=== PATIENT | female | born 1980 | race Caucasian/White ===

== ENCOUNTER 2020-09-23 13:15 | Emergency (ER) | payer OTHER, SELFPAY ==
--- NOTE | 2020-09-23 13:52 | ED.PSYCH ---
HPI - Psych General Chief Complaint: Psychiatric Symptoms Stated Complaint: crisis Time Seen by Provider: 09/23/20 13:45 Source: patient Mode of arrival: ambulatory Limitations: no limitations History of Present Illness HPI Narrative: This is a 40-year-old female with past medical history significant for hepatitis C from IV drug use status post treatment in 2017 at [facility], hepatitis liver cirrhosis, history of IVDA use has been sober for several years now on methadone, anxiety, depression who presents ambulatory via triage with complaint of feeling increasingly depressed and anxious over the past several days and now having thoughts of SI with plan to drown herself in the tub. She does tell me that she was seeing mental health services at [facility] in [place] and was maintained on some antidepressants which she does not know the names of however she has some miss appointments and was discharged from services and trying to get back in and has not had the opportunity to for the past 6 months or so does she has been out of her antidepressants. Today she denies use of any alcohol or illicit drugs or any misuse of any medications to harm herself. She offers no medical complaints today. MD complaint: suicidal ideation and feels depressed Onset (ago): day(s) Duration: constant History of same: Yes Relieving factors: medication and therapy Exacerbating factors: none Context: not taking psychiatric medications Associated psychiatric symptoms: depression and suicidal ideation Associated symptoms: denies other symptoms Treatments prior to arrival: none If self harm: admits thoughts of self harm and has plan (States she has thoughts that come and go of drowning herself in bathtub. ) Related Data Allergies Allergy/AdvReac Type Severity Reaction Status Date / Time No Known Allergies Allergy Verified 09/23/20 14:10 [No Known Allergies*] Review of Systems Review of Systems: Constitutional: No Weight loss, No Fever, No Chills, No Night Sweats, No Fatigue, No Malaise ENT/Mouth: No Hearing loss, No Ear Pain, No Nasal Congestion, No Sinus Pain, No Hoarseness, No sore throat, No Rhinorrhea, No Swallowing Difficulty Eyes: No Eye Pain, No Swelling, No Redness, No Foreign Body, No Discharge, No Vision Changes Cardiovascular: No Chest Pain, No SOB, No Dyspnea on Exertion, No Orthopnea, No Edema, No Palpitations Respiratory: No Cough, No Sputum, No Wheezing, No Dyspnea Gastrointestinal: No Nausea, No Vomiting, No Diarrhea, No Constipation, No abdominal Pain, No Hematochezia, No Melena Genitourinary: no irregular bleeding, No Dysuria, No Urinary Frequency, No Hematuria, No Urinary Incontinence, No Urgency, No Flank Pain, No Urinary Flow Changes, No Hesitancy Musculoskeletal: No joint pain, No Myalgias, No Joint Swelling Skin: No Skin Lesions, No rash Neuro: No Weakness, No Numbness, No Paresthesias, No Loss of Consciousness, No Dizziness, No Headache Psych: As noted per HPI Heme/Lymph: No Bruising, No Bleeding,No Lymphadenopathy Endocrine: No Polyuria, No Polydipsia, No Temperature Intolerance Yes all other systems are reviewed and are negative [facility] Past Medical History Medical History (Updated 09/23/20 @ 20:15 by Beba Beard NP) Anxiety disorder Depression Hepatitis C Liver cirrhosis Methadone dependence Substance abuse Social History Social History Advance Directives: No Advance Directives Information Provided: No Physical Exam Vital Signs: Vital Signs: Last Vital Signs Temp 97.3 F 09/23/20 19:54 Pulse 92 09/23/20 19:54 Resp 16 09/23/20 19:54 BP 135/70 09/23/20 19:54 Pulse Ox 97 09/23/20 19:54 Body Mass Index 39.4 Reviewed Const: General: cooperative, healthy appearing and anxious (Tearful, labile mood); No intoxicated appearing Nutritional Appearance: average body habitus Orientation/consciousness: patient oriented x3 HENMT: Head: Yes normal to inspection Ears: hearing grossly normal bilaterally Eyes: General: appearance normal, both eyes and all related structures Visual Pryor: normal visual pryor by confrontation Alignment and Position: alignment normal Neck: Neck: Yes normal visual inspection, No positive Brudzinski's sign, No positive Kernig's sign and No tender Thyroid: Thyroid normal Chest: Chest palpation & inspection: normal inspection of the chest Resp: Effort & Inspection: normal respiratory effort Auscultation: clear to auscultation bilaterally Cardio: Jugular venous distension: no JVD Rhythm: regular rhythm Heart sounds: S1 normal heart sound present and S2 normal heart sound present GI: Inspection: Yes normal to inspection Palpation (GI): Soft to palpation Percussion: Yes normal to percussion Auscultation: normal bowel sounds : General: Yes no CVA tenderness Back/Spine/Pelvis: Back: no CVA tenderness Skin: General skin exam: no rashes or lesions noted Neuro: General: patient oriented x3 Extrem: General: Yes normal to inspection Course Course Course Narrative: 40-year-old female with above history including history of anxiety and depression and prior substance abuse presenting with above complaint of feeling anxious and depressed with suicidal ideation had medical workup that was unremarkable subsequently cleared for psychiatric evaluation she was seen by the crisis team who is familiar with her and set up with respite program. Patient has been cleared by the crisis team for discharge patient contracts for safety and is future oriented and will go to respite tomorrow morning. Reevaluation(s) Reevaluation #1: 1400 Offers no medical complaints will check basic labs for medical screening, safety watch per protocol and referred to crisis once medically clear. Reevaluation #2: She has been calm cooperative here medically clear for psychiatric evaluation. Consultations Consultation #1: Patient evaluated by crisis team well known to her head an acute episode that prompted her to come here today trigger by her underlying anxiety and other social issues. They have set of with partial program for tomorrow patient contracts for safety no SI or HI and will gather stuffing go to respite program tomorrow from home. MDM - Psych Lab Data Result diagrams: 09/23/20 15:28 09/23/20 15:28 Labs: Lab Results 09/23/20 09/23/20 09/23/20 Range/Units 15:07 15:07 15:07 WBC (4.8-10.8) X10*3/uL RBC (4.20-5.50) X10*6/uL Hgb (12.0-16.0) g/dl Hct (37-47) % MCV (80-98) fL MCH (27.0-33.0) pg MCHC (31.0-35.0) g/dl RDW (11.0-16.0) % Plt Count (160-400) X10*3/uL MPV (9.4-12.3) fL Immature Gran % (Auto) (0.0-0.4) % Neut % (Auto) (45-73) % Lymph % (Auto) (20-40) % [place] % (Auto) (2-11) % Eos % (Auto) (0-4) % Baso % (Auto) (0-2) % Lymph # (Auto) (1.2-4.9) X10*3/uL [place] # (Auto) (0.1-1.2) X10*3/uL Eos # (Auto) (0.0-0.4) X10*3/uL Baso # (Auto) (0.0-0.2) X10*3/uL Abs Immat Gran (auto) (0.00-0.03) X10*3/uL Absolute Neuts (auto) (2.0-8.3) X10*3/uL Absolute Nucleated RBC (0.0-0.012) X10*3/uL Nucleated RBC % (auto) (0.0-0.2) /100WBC Sodium (135-145) mmol/L Potassium (3.3-5.1) mmol/L Chloride (96-108) mmol/L Carbon Dioxide (22-29) mmol/L Anion Gap (12-20) BUN (9-16) mg/dL Creatinine (0.5-1.4) mg/dL Estim Creat Clear Calc Estimated GFR Random Glucose (60-115) mg/dL Calcium (8.4-10.2) mg/dL Total Bilirubin (0.0-1.0) mg/dL AST (5-31) U/L ALT (0-31) U/L Alkaline Phosphatase (39-117) U/L Total Protein (6.5-8.0) g/dL Albumin (3.5-5.0) g/dL Urine Color DARK YELLOW Urine Appearance CLEAR Urine pH 6.5 (5.0-8.0) Ur Specific [place] 1.020 (1.005-1.025) Urine Protein TRACE (NEG-TRACE) MG/DL Urine Glucose (UA) 100 H (NEG) MG/DL Urine Ketones NEG (NEG) MG/DL Urine Blood NEG (NEG) Urine Nitrite NEG (NEG) Ur Leukocyte Esterase NEG (NEG) Urine RBC 0 (0) /HPF Urine WBC 0 (0-4) /HPF Ur Squamous Epith Cells 2+ /LPF Urine Bacteria TRACE /LPF Urine Test NEGATIVE (NEGATIVE) Urine Opiates Screen Not Detected (Not Detect) Ur Barbiturates Screen Not Detected (Not Detect) Ur Phencyclidine Scrn Not Detected (Not Detect) Ur Amphetamines Screen Not Detected (Not Detect) U Benzodiazepines Scrn Not Detected (Not Detect) Urine Cocaine Screen Not Detected (Not Detect) U Marijuana (THC) Screen POSITIVE H (Not Detect) Ethyl Alcohol mg/dL COVID-19 (SADAF) (Negative) COVID-19 Clin Com 09/23/20 09/23/20 09/23/20 Range/Units 15:28 15:28 15:28 WBC 7.6 (4.8-10.8) X10*3/uL RBC 4.40 (4.20-5.50) X10*6/uL Hgb 14.1 (12.0-16.0) g/dl Hct 40.3 (37-47) % MCV 91.6 (80-98) fL MCH 32.0 (27.0-33.0) pg MCHC 35.0 (31.0-35.0) g/dl RDW 12.8 (11.0-16.0) % Plt Count 111 L (160-400) X10*3/uL MPV 11.8 (9.4-12.3) fL Immature Gran % (Auto) 0.3 (0.0-0.4) % Neut % (Auto) 70.0 (45-73) % Lymph % (Auto) 23.5 (20-40) % [place] % (Auto) 5.1 (2-11) % Eos % (Auto) 0.8 (0-4) % Baso % (Auto) 0.3 (0-2) % Lymph # (Auto) 1.8 (1.2-4.9) X10*3/uL [place] # (Auto) 0.4 (0.1-1.2) X10*3/uL Eos # (Auto) 0.1 (0.0-0.4) X10*3/uL Baso # (Auto) 0.0 (0.0-0.2) X10*3/uL Abs Immat Gran (auto) 0.02 (0.00-0.03) X10*3/uL Absolute Neuts (auto) 5.3 (2.0-8.3) X10*3/uL Absolute Nucleated RBC 0.000 (0.0-0.012) X10*3/uL Nucleated RBC % (auto) 0.0 (0.0-0.2) /100WBC Sodium 139 (135-145) mmol/L Potassium 3.5 (3.3-5.1) mmol/L Chloride 106 (96-108) mmol/L Carbon Dioxide 26 (22-29) mmol/L Anion Gap 11 L (12-20) BUN 8 L (9-16) mg/dL Creatinine 0.78 (0.5-1.4) mg/dL Estim Creat Clear Calc 111.7 Estimated GFR > 60 Random Glucose 130 H (60-115) mg/dL Calcium 8.7 (8.4-10.2) mg/dL Total Bilirubin 1.1 H (0.0-1.0) mg/dL AST 24 (5-31) U/L ALT 18 (0-31) U/L Alkaline Phosphatase 75 (39-117) U/L Total Protein 7.8 (6.5-8.0) g/dL Albumin 4.0 (3.5-5.0) g/dL Urine Color Urine Appearance Urine pH (5.0-8.0) Ur Specific [place] (1.005-1.025) Urine Protein (NEG-TRACE) MG/DL Urine Glucose (UA) (NEG) MG/DL Urine Ketones (NEG) MG/DL Urine Blood (NEG) Urine Nitrite (NEG) Ur Leukocyte Esterase (NEG) Urine RBC (0) /HPF Urine WBC (0-4) /HPF Ur Squamous Epith Cells /LPF Urine Bacteria /LPF Urine Test (NEGATIVE) Urine Opiates Screen (Not Detect) Ur Barbiturates Screen (Not Detect) Ur Phencyclidine Scrn (Not Detect) Ur Amphetamines Screen (Not Detect) U Benzodiazepines Scrn (Not Detect) Urine Cocaine Screen (Not Detect) U Marijuana (THC) Screen (Not Detect) Ethyl Alcohol < 10 mg/dL COVID-19 (SADAF) (Negative) COVID-19 Clin Com 09/23/20 Range/Units 19:08 WBC (4.8-10.8) X10*3/uL RBC (4.20-5.50) X10*6/uL Hgb (12.0-16.0) g/dl Hct (37-47) % MCV (80-98) fL MCH (27.0-33.0) pg MCHC (31.0-35.0) g/dl RDW (11.0-16.0) % Plt Count (160-400) X10*3/uL MPV (9.4-12.3) fL Immature Gran % (Auto) (0.0-0.4) % Neut % (Auto) (45-73) % Lymph % (Auto) (20-40) % [place] % (Auto) (2-11) % Eos % (Auto) (0-4) % Baso % (Auto) (0-2) % Lymph # (Auto) (1.2-4.9) X10*3/uL [place] # (Auto) (0.1-1.2) X10*3/uL Eos # (Auto) (0.0-0.4) X10*3/uL Baso # (Auto) (0.0-0.2) X10*3/uL Abs Immat Gran (auto) (0.00-0.03) X10*3/uL Absolute Neuts (auto) (2.0-8.3) X10*3/uL Absolute Nucleated RBC (0.0-0.012) X10*3/uL Nucleated RBC % (auto) (0.0-0.2) /100WBC Sodium (135-145) mmol/L Potassium (3.3-5.1) mmol/L Chloride (96-108) mmol/L Carbon Dioxide (22-29) mmol/L Anion Gap (12-20) BUN (9-16) mg/dL Creatinine (0.5-1.4) mg/dL Estim Creat Clear Calc Estimated GFR Random Glucose (60-115) mg/dL Calcium (8.4-10.2) mg/dL Total Bilirubin (0.0-1.0) mg/dL AST (5-31) U/L ALT (0-31) U/L Alkaline Phosphatase (39-117) U/L Total Protein (6.5-8.0) g/dL Albumin (3.5-5.0) g/dL Urine Color Urine Appearance Urine pH (5.0-8.0) Ur Specific [place] (1.005-1.025) Urine Protein (NEG-TRACE) MG/DL Urine Glucose (UA) (NEG) MG/DL Urine Ketones (NEG) MG/DL Urine Blood (NEG) Urine Nitrite (NEG) Ur Leukocyte Esterase (NEG) Urine RBC (0) /HPF Urine WBC (0-4) /HPF Ur Squamous Epith Cells /LPF Urine Bacteria /LPF Urine Test (NEGATIVE) Urine Opiates Screen (Not Detect) Ur Barbiturates Screen (Not Detect) Ur Phencyclidine Scrn (Not Detect) Ur Amphetamines Screen (Not Detect) U Benzodiazepines Scrn (Not Detect) Urine Cocaine Screen (Not Detect) U Marijuana (THC) Screen (Not Detect) Ethyl Alcohol mg/dL COVID-19 (SADAF) Negative (Negative) COVID-19 Clin Com See Note Discharge Plan Discharge Clinical Impression: Methadone dependence Depression Qualifiers: Depression Type: major depressive disorder Major depression recurrence: recurrent Active/Remission status: currently active Major depression episode severity: moderate Qualified Code(s): F33.1 - Major depressive disorder, recurrent, moderate Patient Disposition: Home, Self-Care Instructions: Depression (ED) Additional Instructions: Please follow-up with outpatient treatments as scheduled and respite as discussed by YOG[facility]. Thank you for choosing this emergency department for evaluation. Please follow-up with primary care physician as needed. Return to the emergency department for any new, concerning, or worsening symptoms. Interventions: ED Discharge Assessment Last Done: 09/23/20 20:24 Discharge Date/Time: 09/23/20 20:25
[2020-09-23 14:08] VITALS: BP 139/71; PULSE 93; RESP 16; TEMP 37.5; O2SAT 97; BMI 39.4
--- NOTE | 2020-09-23 14:48 | PC.NURSE ---
SUMMARY SENT TO [facility] AND RECEIPT CONFIRMED WITH A PHONE CALL.
[2020-09-23 15:20] LABS: Glucose Urine UA 100 MG/DL (NEG); Leukocyte Esterase Urine NEG (NEG); Nitrite Urine NEG (NEG); PH 6.5 (5.0-8.0); Urine Blood NEG (NEG); Urine Ketones NEG (NEG); Urine Protein TRACE MG/DL (NEG-TRACE)
[2020-09-23 15:21] LABS: Appearance Urine CLEAR; Color Urine DARK YELLOW; UPreg QC Valid YES; Urine Pregnancy NEGATIVE (NEGATIVE)
[2020-09-23 15:44] LABS: MANUAL DIFF FLAG NO
[2020-09-23 15:51] LABS: Basophils Percent Auto 0.3 % (0-2); Eosinophils Absolute Auto 0.1 X10*3/uL (0.0-0.4); Eosinophils Percent Auto 0.8 % (0-4); Hematocrit 40.3 % (37-47); Hemoglobin 14.1 g/dl (12.0-16.0); Imm Gran Abs Auto 0.02 X10*3/uL (0.00-0.03); Imm Gran Pct Auto 0.3 % (0.0-0.4); Lymphocytes Absolute Auto 1.8 X10*3/uL (1.2-4.9); Lymphocytes Percent Auto 23.5 % (20-40); Mean Corpuscular Volume 91.6 fL (80-98); Mean Platelet Volume 11.8 fL (9.4-12.3); Monocytes Absolute Auto 0.4 X10*3/uL (0.1-1.2); Monocytes Percent Auto 5.1 % (2-11); Neutrophils Absolute Auto 5.3 X10*3/uL (2.0-8.3); Platelet Count 111 X10*3/uL (160-400); Red Cell Distribution Width 12.8 % (11.0-16.0); White Blood Count 7.6 X10*3/uL (4.8-10.8)
[2020-09-23] MEDS: LORazepam 1 MG TABLET PO (16:06)
[2020-09-23 16:20] LABS: Ethanol < 10 mg/dL
[2020-09-23 16:21] LABS: Alanine Aminotransferase 18 U/L (0-31); Alkaline Phosphatase 75 U/L (39-117); Anion Gap 11 (12-20); Aspartate Amino Transferase 24 U/L (5-31); Bilirubin Total 1.1 mg/dL (0.0-1.0); Blood Urea Nitrogen 8 mg/dL (9-16); Calcium 8.7 mg/dL (8.4-10.2); Carbon Dioxide 26 mmol/L (22-29); Chloride 106 mmol/L (96-108); Creatinine Clr Calc Pharmacy 111.7; Estimated Glomerular Filt Rate > 60; Glucose Random 130 mg/dL (60-115); Potassium 3.5 mmol/L (3.3-5.1); Sodium 139 mmol/L (135-145); Total Protein 7.8 g/dL (6.5-8.0)
[2020-09-23 18:29] LABS: Bacteria Urine TRACE /LPF; RBC Urine 0 /HPF (0); Squamous Epithelial Cell Urine 2+ /LPF; WBC Urine 0 /HPF (0-4)
--- NOTE | 2020-09-23 18:40 | PC.NURSE ---
[facility] AT BEDSIDE, SHE WAS SEEN YESTERDAY BY THEM & RESPITE SITE WAS FOUND FOR HER BUT THEREWAS APPARENTLY A DELAY D/T ISSUES WITH QUESTION OF PT BEING ABLE TO RECEIVE MTD DOSES WITH THEM. IF PT AGREES TO LEAVE FOR RESPITE, SHE WILL MOSTLY LIKELY LEAVE TODAY THERE IS A BED AVAIALBLE.
[2020-09-23 19:54] VITALS: BP 135/70; PULSE 92; RESP 16; TEMP 36.3; O2SAT 97
--- NOTE | 2020-09-23 19:58 | PC.NURSE ---
TRANSPORTATION HOME ARRANGED BY PAULETTE ([employer] APPRENTICE). PLAN TO DISCHARGE HOME WITH PLAN TO GO TO RESPITE AFTERWARDS, PER CHARAN (CARE TEAM).
--- NOTE | 2020-09-23 19:58 | PC.NURSE ---
URINE DRUG SCREEN ADDED, SPOKE WITH ALANNA IN LAB, PLAN TO ADD-ON LAB TO PREVIOUSLY SENT URINE SPECIMEN.
[2020-09-23 20:23] LABS: COVID-19 Test Negative (Negative); IDNOW Serial# 9DD0AD1C
[2020-09-23 20:28] LABS: Amphetamine Screen Urine Not Detected (Not Detect); Barbiturates, Urine Not Detected (Not Detect); Benzodiazepines Screen Urine Not Detected (Not Detect); Cannabinoid Screen Urine POSITIVE (Not Detect); Cocaine Screen Urine Not Detected (Not Detect); Opiate Screen Urine Not Detected (Not Detect); Phencyclidine Screen Urine Not Detected (Not Detect)
--- NOTE | 2020-09-23 22:29 | MHC.CARE ---
CARE Team speaks with [facility] clinician. Plan is for pt to d/c home and go to respite tomorrow. [facility] requests that UTOX and covid results [facility]. Faxed by CARE Team @2025.
== END 2020-09-23 20:25 | disposition home or self-care (01) ==
PROVIDERS: Nurse Practitioner Primary Care; Emergency Provider Emergency Medicine
DX: F33.1 Major depressive disorder, recurrent, moderate (principal); R45.851 Suicidal ideations; F11.20 Opioid dependence, uncomplicated; Z20.822 Contact with and (suspected) exposure to COVID-19; Z79.899 Other long term (current) drug therapy
CPT/HCPCS: 36415; 80053; 80307; 80320; 81001; 81025; 85025; 87635; 99284

== ENCOUNTER 2022-07-26 01:33 | Emergency (ER) | payer OTHER, SELFPAY ==
--- NOTE | 2022-07-26 | ECG_ITS ---
Test Reason : CHEST PAIN Blood Pressure : / mmHG Vent. Rate : 093 BPM Atrial Rate : 093 BPM P-R Int : 134 ms QRS Dur : 094 ms QT Int : 382 ms P-R-T Axes : 035 016 018 degrees QTc Int : 474 ms Artifact in tracing Normal sinus rhythm Normal ECG When compared with ECG of 12-AUG-2016 22:59, No significant change was found Referred By: Emily Gonzáles Electronically Signed By:SHARON MANZANARES
--- NOTE | ~2022-07-26 | XR_ITS ---
EXAMINATION: XR CHEST CLINICAL INFORMATION: Chest pain COMPARISON: None TECHNIQUE: Frontal view of the chest was obtained. FINDINGS: No significant abnormality is noted involving the heart, lungs, mediastinum, bony thorax or soft tissues. XR/XR chest 1V IMPRESSION: Unremarkable examination.
[2022-07-26 01:37] VITALS: BP 131/67; BP 136/74; PULSE 72; PULSE 95; RESP 14; TEMP 37.2; O2SAT 99
[2022-07-26 01:51] VITALS: BP 131/67; PULSE 100; RESP 16; TEMP 37.1; O2SAT 97
--- NOTE | 2022-07-26 01:59 | ED_ITS ---
HPI - Chest Pain General Chief Complaint: Chest Pain Stated Complaint: chest tightness Time Seen by Provider: 07/26/22 01:50 Source: patient and EMS Mode of arrival: EMS Limitations: no limitations History of Present Illness HPI narrative: Came in for evaluation of chest pain since early this morning. Localized mid chest pain with no radiation, pain feels like tightness in the mid chest, patient also complain of shortness of breath, had similar symptoms in the past due to anxiety, no relieving factor, no aggravating factor pain was described as constant sense at this morning moderate 5/10. Declined recent tr maikol or prolonged immobilization. No lower extremity swelling or tenderness. Patient feels depressed but no SI or HI or hallucination. Related Data Allergies Allergy/AdvReac Type Severity Reaction Status Date / Time No Known Allergies Allergy Verified 07/26/22 01:47 [No Known Allergies*] Review of Systems Review of Systems: All other systems are reviewed and are negative Constitutional: Reports as per HPI and Reports no additional constitutional complaints Eyes: Reports as per HPI and Reports no additional eye complaints Reports system reviewed and no additional complaints, except as documented Cardiovascular: Reports as per HPI and Reports no additional cardiovascular complaints Respiratory: Reports as per HPI and Reports no additional respiratory complaints Gastrointestinal: Reports as per HPI and Reports no additional gastrointestinal complaints Genitourinary: Reports no additional female genitourinary complaints Musculoskeletal: Reports no additional musculoskeletal complaints Skin/Breast: Reports system reviewed and no additional complaints, except as docu Psychiatric: Reports no additional psychiatric complaints Endocrine: Reports no additional endocrine complaints Hematologic/Lymphatic: Reports no additional hematologic/lymphatic complaints Allergic/Immunologic: Reports no additional allergic/immunologic complaints Reports system reviewed and no additional complaints, except as documented and Reports Abnormal speech present [facility] Past Medical History Medical History Anxiety disorder Depression Hepatitis C Liver cirrhosis Methadone dependence Substance abuse Social History Social History Advance Directives: No Advance Directives Information Provided: No Physical Exam Vital Signs: Vital Signs: Last Vital Signs Temp 98.7 F 07/26/22 01:51 Pulse 104 H 07/26/22 03:59 Resp 18 07/26/22 03:59 BP 135/75 07/26/22 03:59 Pulse Ox 100 07/26/22 03:59 O2 Del Method 07/26/22 03:59 BMI result Body Mass Index 30.0 Vital signs have been reviewed as appeared to be correct. Blood pressure normal. Heart rate normal. Respiration rate normal. Temperature normal. Oxygen saturation normal. Appearance: Anxious, Alert. Oriented X3. No acute distress. Head: Normal external exam. Normocephalic. Atraumatic. No Nielson signs noted. No raccoon eyes noted Eyes: PERRLA. EOMI. Conjunctiva and sclera normal. Eyelids normal. ENT: TM's Normal. Pharynx normal. Uvula midline. Moist mucous membranes. No trismus noted. No drooling noted. No muffled voice noted. Neck: Normal inspection. Neck supple. FROM. No adenopathy. Thyroid Normal. No meningeal signs. No neck mass noted. CVS: Normal heart rate and rhythm. Heart sound normal. No murmurs noted. Pulses normal throughout. Respiratory: No respiratory distress. Painless inspiration. Breath sounds normal. No wheezes/rales/rhonchi noted. Chest nontender. No accessory muscle usage noted or decreased air movement noted. Abdomen: Soft and nontender. Bowel sounds normal in all 4 quadrants. No distention noted. No organomegaly noted. No visible injury noted. Back: No CVA tenderness. Full range of motion noted. Skin: Skin warm and dry. Normal skin color. Normal skin turgor. No rashes/lesions/lacerations noted. Extremities: No lower extremity edema. Extremities exhibit normal range of motion. Extremities nontender. Neuro: Oriented X 3. Cranial nerve exam: II-XII are grossly intact No motor deficit. No sensory deficit. Reflexes normal. Course Course Course Narrative: 41-year-old female history of anxiety and depression came in with atypical chest pain, unremarkable cardiac workup, negative D-dimer with low risk for PA, stable vital signs. Hypokalemia will replete potassium. Patient was chronic depression but no SI or HI or hallucination. Reevaluation(s) Reevaluation #1: Unremarkable workup for chest pain patient still feel anxious after given 2 mg of Ativan patient has very poor eye contact feeling depressed with a depressed affect but no SI or HI will start physician observation until care team evaluate the patient. Time: 05:14 Medications Administered Discontinued Medications Generic Name Dose Route Start Last Admin Trade Name Freq PRN Reason Stop Dose Admin Potassium Chloride 10 meq in 100 mls @ 100 mls/hr 07/26/22 03:07 07/26/22 04:09 Potassium Chloride/H20 IV 07/26/22 04:06 Not Given ONCE ONE Lorazepam 2 mg 07/26/22 03:55 07/26/22 04:08 Lorazepam 1 Mg Tablet PO 07/26/22 03:56 2 mg ONCE ONE Administration Medical Decision Making Differential Diagnosis Differential Diagnoses: The differential diagnosis associated with the presentation includes (Anxiety, atypical chest pain, ACS, PE.) Lab Data MDM Lab Attestation statement: I reviewed the patient's lab results. Result Diagrams: 07/26/22 02:01 07/26/22 02:01 Labs: Lab Results 07/26/22 07/26/22 07/26/22 Range/Units 02:01 02:01 02:01 WBC 6.2 (4.8-10.8) X10*3/uL RBC 4.25 (4.20-5.50) X10*6/uL Hgb 13.1 (12.0-16.0) g/dl Hct 37.1 (37.0-47.0) % MCV 87.3 (80.0-98.0) fL MCH 30.8 (27.0-33.0) pg MCHC 35.3 H (31.0-35.0) g/dl RDW 13.1 (11.0-16.0) % Plt Count 86 L (160-400) X10*3/uL MPV 12.0 (9.4-12.3) fL Immature Gran % (Auto) 0.2 (0.0-0.4) % Neut % (Auto) 74.5 H (45-73) % Lymph % (Auto) 17.7 L (20-40) % [place] % (Auto) 6.8 (2-11) % Eos % (Auto) 0.6 (0-4) % Baso % (Auto) 0.2 (0-2) % Lymph # (Auto) 1.1 L (1.2-4.9) X10*3/uL [place] # (Auto) 0.4 (0.1-1.2) X10*3/uL Eos # (Auto) 0.0 (0.0-0.4) X10*3/uL Baso # (Auto) 0.0 (0.0-0.2) X10*3/uL Abs Immat Gran (auto) 0.01 (0.00-0.03) X10*3/uL Absolute Neuts (auto) 4.6 (2.0-8.3) x10*3/uL Absolute Nucleated RBC 0.000 (0.0-0.012) X10*3/uL Nucleated RBC % (auto) 0.0 (0.0-0.2) /100WBC D-Dimer High Sensitivty < 150 NG/ML Sodium 137 (135-145) mmol/L Potassium 3.0 L (3.3-5.1) mmol/L Chloride 105 (96-108) mmol/L Carbon Dioxide 23 (22-29) mmol/L Anion Gap 12 (12-20) BUN 8 L (9-16) mg/dL Creatinine 0.78 (0.5-1.4) mg/dL Estim Creat Clear Calc 95.7 Estimated GFR > 60 Random Glucose 120 H (60-115) mg/dL Calcium 8.8 (8.4-10.2) mg/dL Total Bilirubin 0.6 (0.0-1.0) mg/dL Direct Bilirubin 0.2 (0.0-0.5) mg/dL AST 23 (5-31) U/L ALT 23 (0-31) U/L Alkaline Phosphatase 74 (39-117) U/L Troponin I High Sens (<3.5-17.0) ng/L B-Natriuretic Peptide (<100) pg/mL Total Protein 7.4 (6.5-8.0) g/dL Albumin 4.0 (3.5-5.0) g/dL Lipase 16 (8-78) U/L Influenza Type A (PCR) (Negative) Influenza Type B (PCR) (Negative) RSV RNA Qual (PCR) (Negative) SARS-CoV-2 RNA (RT-PCR) (Negative) 07/26/22 07/26/22 07/26/22 Range/Units 02:01 02:01 02:01 WBC (4.8-10.8) X10*3/uL RBC (4.20-5.50) X10*6/uL Hgb (12.0-16.0) g/dl Hct (37.0-47.0) % MCV (80.0-98.0) fL MCH (27.0-33.0) pg MCHC (31.0-35.0) g/dl RDW (11.0-16.0) % Plt Count (160-400) X10*3/uL MPV (9.4-12.3) fL Immature Gran % (Auto) (0.0-0.4) % Neut % (Auto) (45-73) % Lymph % (Auto) (20-40) % [place] % (Auto) (2-11) % Eos % (Auto) (0-4) % Baso % (Auto) (0-2) % Lymph # (Auto) (1.2-4.9) X10*3/uL [place] # (Auto) (0.1-1.2) X10*3/uL Eos # (Auto) (0.0-0.4) X10*3/uL Baso # (Auto) (0.0-0.2) X10*3/uL Abs Immat Gran (auto) (0.00-0.03) X10*3/uL Absolute Neuts (auto) (2.0-8.3) x10*3/uL Absolute Nucleated RBC (0.0-0.012) X10*3/uL Nucleated RBC % (auto) (0.0-0.2) /100WBC D-Dimer High Sensitivty NG/ML Sodium (135-145) mmol/L Potassium (3.3-5.1) mmol/L Chloride (96-108) mmol/L Carbon Dioxide (22-29) mmol/L Anion Gap (12-20) BUN (9-16) mg/dL Creatinine (0.5-1.4) mg/dL Estim Creat Clear Calc Estimated GFR Random Glucose (60-115) mg/dL Calcium (8.4-10.2) mg/dL Total Bilirubin (0.0-1.0) mg/dL Direct Bilirubin (0.0-0.5) mg/dL AST (5-31) U/L ALT (0-31) U/L Alkaline Phosphatase (39-117) U/L Troponin I High Sens < 3.5 (<3.5-17.0) ng/L B-Natriuretic Peptide < 10 (<100) pg/mL Total Protein (6.5-8.0) g/dL Albumin (3.5-5.0) g/dL Lipase (8-78) U/L Influenza Type A (PCR) NEGATIVE (Negative) Influenza Type B (PCR) NEGATIVE (Negative) RSV RNA Qual (PCR) NEGATIVE (Negative) SARS-CoV-2 RNA (RT-PCR) NEGATIVE (Negative) Independent Interpretation I performed an independent interpretation of an: EKG (Normal sinus rhythm at 93 beats per minutes, normal axis deviation, normal intervals, no ST-T changes, artifact.) and Plain X-Ray (Unremarkable examination.) Radiology Impression Discussion of test interpretation with radiology: I have reviewed the radiologist's reading. Discharge Plan Discharge Clinical Impression: Anxiety disorder, Atypical chest pain, Hypokalemia Patient Disposition: Still a Patient Instructions: Anxiety (ED) Referrals: Physician,Unknown J [Primary Care Provider] -
[2022-07-26 02:08] LABS: MANUAL DIFF FLAG NO
[2022-07-26 02:11] LABS: Basophils Percent Auto 0.2 % (0-2); Eosinophils Percent Auto 0.6 % (0-4); Hematocrit 37.1 % (37.0-47.0); Hemoglobin 13.1 g/dl (12.0-16.0); Imm Gran Abs Auto 0.01 X10*3/uL (0.00-0.03); Imm Gran Pct Auto 0.2 % (0.0-0.4); Lymphocytes Absolute Auto 1.1 X10*3/uL (1.2-4.9); Lymphocytes Percent Auto 17.7 % (20-40); Mean Corpuscular HGB Conc 35.3 g/dl (31.0-35.0); Mean Corpuscular Hemoglobin 30.8 pg (27.0-33.0); Mean Corpuscular Volume 87.3 fL (80.0-98.0); Monocytes Absolute Auto 0.4 X10*3/uL (0.1-1.2); Monocytes Percent Auto 6.8 % (2-11); Neutrophils Absolute Auto 4.6 x10*3/uL (2.0-8.3); Neutrophils Percent Auto 74.5 % (45-73); Red Blood Count 4.25 X10*6/uL (4.20-5.50); Red Cell Distribution Width 13.1 % (11.0-16.0); White Blood Count 6.2 X10*3/uL (4.8-10.8)
[2022-07-26 02:12] LABS: Platelet Count 86 X10*3/uL (160-400)
[2022-07-26 02:19] LABS: D Dimer High Sensitivity < 150 NG/ML
[2022-07-26 02:26] LABS: Alanine Aminotransferase 23 U/L (0-31); Alkaline Phosphatase 74 U/L (39-117); Anion Gap 12 (12-20); Aspartate Amino Transferase 23 U/L (5-31); Bilirubin Direct 0.2 mg/dL (0.0-0.5); Bilirubin Total 0.6 mg/dL (0.0-1.0); Blood Urea Nitrogen 8 mg/dL (9-16); Calcium 8.8 mg/dL (8.4-10.2); Carbon Dioxide 23 mmol/L (22-29); Chloride 105 mmol/L (96-108); Creatinine Clr Calc Pharmacy 95.7; Estimated Glomerular Filt Rate > 60; Glucose Random 120 mg/dL (60-115); Lipase 16 U/L (8-78); Sodium 137 mmol/L (135-145); Total Protein 7.4 g/dL (6.5-8.0)
[2022-07-26 02:35] LABS: Troponin-I High Sensitivity < 3.5 ng/L (<3.5-17.0)
[2022-07-26 02:46] LABS: Influenza A PCR NEGATIVE (Negative); Influenza B PCR NEGATIVE (Negative); Resp Syncy Virus RNA Qual PCR NEGATIVE (Negative); SARS COV2 PCR INHOUSE NEGATIVE (Negative)
[2022-07-26 02:57] LABS: B Type Natriuretic Peptide < 10 pg/mL (<100)
[2022-07-26 03:59] VITALS: BP 135/75; PULSE 104; RESP 18; O2SAT 100
[2022-07-26] MEDS: LORazepam 1 MG TABLET 2 MG PO (04:08)
[2022-07-26 05:58] VITALS: BP 150/73; PULSE 90; RESP 18; O2SAT 98
[2022-07-26 06:26] LABS: Appearance Urine Clear; Color Urine Yellow; Glucose Urine UA Negative (Negative); Leukocyte Esterase Urine Moderate (2+) (Negative); Nitrite Urine Negative (Negative); Specific Gravity - Urine 1.015 (1.005-1.025); UMIC TRIGGER UACC YES; Urine Blood Negative (Negative); Urine Ketones Negative (Negative); Urine Protein Negative (Neg-Trace)
[2022-07-26 06:29] LABS: Bacteria Urine None Seen (None Seen); Hyaline Casts Urine 0-2 /LPF (0-2); RBC Urine 0-2 /HPF (0-2); UACC Culture Trigger YES; WBC Urine 21-50 /HPF (0-5)
--- NOTE | 2022-07-26 06:50 | PC.NURSE ---
report given to TABATHA Thompson
== END 2022-07-26 07:38 | disposition home or self-care (01) ==
PROVIDERS: Emergency Medicine; Emergency Provider Emergency Medicine Emergency Medical Services
DX: F41.9 Anxiety disorder, unspecified (principal); R07.89 Other chest pain; E87.6 Hypokalemia; R06.02 Shortness of breath; Z20.822 Contact with and (suspected) exposure to COVID-19; F11.20 Opioid dependence, uncomplicated
CPT/HCPCS: 0241U; 71045; 80048; 80076; 81001; 83690; 83880; 84484; 85025; 85379; 87086; 93005; 99284; S9485

== ENCOUNTER 2023-08-13 16:24 | Emergency (ER) | payer MEDICAID, SELFPAY ==
[2023-08-13 16:29] VITALS: BP 132/88; PULSE 84; O2SAT 98
[2023-08-13 16:34] VITALS: BP 149/78; PULSE 80; RESP 16; TEMP 37.4; O2SAT 97; BMI 34.3
--- NOTE | 2023-08-13 17:36 | ED_ITS ---
HPI - General Adult General Chief complaint: Back Pain/Injury Stated complaint: rt sided back pain, covid Time Seen by Provider: 08/13/23 16:43 Source: patient and EMS Mode of arrival: EMS Limitations: no limitations History of Present Illness HPI narrative: Patient is a 42-year-old female with history of cirrhosis, hepatitis-C, depression and anxiety, asthma, methadone dependence presenting to the emergency department with complaint of right-sided back pain. Patient reports that pain began when she twisted while getting out of bed 2 days ago and is persisting. Denies fall or other trauma. States pain radiates from right lower back up to mid back. She denies any weakness, numbness, tingling. Denies any saddle anesthesia or bowel or bladder incontinence. Patient does report intermittent subjective fevers but is also COVID positive currently. Patient was evaluated at [facility] Emergency Department on 08/10/23 for shortness of breath and was found to be COVID positive at that time. MD complaint: back pain Onset (ago): day(s) Location: back Radiation: non-radiation Severity: severe Quality: aching and other (spasming) Pain Consistency: colicky Relieving factors: rest Exacerbating factors: movement Treatments prior to arrival: NSAID and other Related Data Previous Rx's Medication Instructions Recorded cyclobenzaprine 5 mg tablet 5 mg PO TID PRN muscle spasm #10 08/13/23 tabs lidocaine 5 % topical patch 1 patch topical DAILY #15 ea 08/13/23 prednisone 20 mg tablet 40 mg (2 x 20 mg) PO DAILY #10 tabs 08/13/23 Allergies Allergy/AdvReac Type Severity Reaction Status Date / Time No Known Allergies Allergy Verified 07/26/22 01:47 [No Known Allergies*] Review of Systems Review of Systems: As per HPI. Yes all other systems are reviewed and are negative Constitutional: Constitutional: Reports as per HPI [facility] Past Medical History Medical History Anxiety disorder Depression Hepatitis C Liver cirrhosis Methadone dependence Substance abuse Social History Social History Smoked in Last 30 Days: No Use of substances other than those prescribed or required for medical reasons: No Advance Directives: No Physical Exam ED Vital Signs: Vital Signs - 24 hr 08/13/23 16:34 Temperature 99.4 F Pulse Rate 80 Respiratory Rate 16 Blood Pressure 149/78 H Pulse Oximetry 97 Oxygen Delivery Method Room Air BMI result Body Mass Index 34.3 Vital signs have been reviewed and appear to be correct. Blood pressure elevated. Heart rate normal. Respiratory rate normal. Temperature normal. Oxygen saturation normal. Const General: cooperative, healthy appearing and no acute distress Orientation/consciousness: oriented to person, oriented to place, oriented to time and patient oriented x3 Limitations: no limitations HENAR Head: Yes normocephalic and Yes atraumatic Ears: external ears normal General nose exam: Normal external nose present Face and sinus: Yes face symmetric Mouth: oropharynx normal and moist mucous membranes Throat: Yes uvula midline Eyes Pupils: Equal, round and reactive pupils present Neck Neck: Yes normal visual inspection and Yes supple Resp Effort & Inspection: normal respiratory effort and able to speak in complete sentences Auscultation: clear to auscultation bilaterally and wheezes expiratory wheezes and throughout Cardio Rate: regular rate Rhythm: regular rhythm Heart sounds: S1 normal heart sound present and S2 normal heart sound present GI Palpation (GI): Soft to palpation and nontender Auscultation: normoactive bowel sounds General: Yes no CVA tenderness Back/Spine/Pelvis Back: no CVA tenderness Cervical Spine: normal cervical lordosis, cervical ROM normal, No cervical muscular tenderness, No Cervical spine tenderness and No step off deformity Thoracic/Lumbar Spine: thoracic and lumbar spine normal to inspection, thoraco- lumbar ROM normal, straight leg raise negative bilaterally, pain with thoraco- lumbar ROM, paraspinal muscle tenderness on the right in the mid thoracic, in the lower thoracic, in the upper lumbar and in the mid lumbar, No thoracic spinal tenderness and No lumbar spinal tenderness Pelvis: no pain with anterior-posterior compression and no pain with lateral compression Sacroiliac joints: bilaterally nontender Skin General skin exam: elasticity normal and turgor normal Neuro General: oriented to person, oriented to place, oriented to time, patient oriented x3, moves all extremities, no focal motor deficits and CN's II-XI intact bilaterally Cranial nerves: Yes Equal, round and reactive pupils present Cognition (Neuro): normal cognition Extrem General: Yes full ROM, Yes no pedal edema and Yes no calf tenderness Psych Mental Status: mental status grossly normal Affect: normal affect Thought process: Normal thought process present Medical Decision Making Medical Decision Making [facility] Narrative: Patient is a 42-year-old female with history of cirrhosis, hepatitis-C, dep ression and anxiety, asthma, methadone dependence presenting to the emergency department with complaint of right-sided back pain. On exam patient is awake, A+Ox3, BP elevated, VS otherwise WNL, afebrile, normal neurological exam without focal deficits, physical exam findings as above. Given reported symptoms and physical exam findings, initial differential includes muscle strain, lumbar radiculopathy, asthma exacerbation. Records obtained from recent visit to [facility]. Patient had extensive imaging at that time including chest x-ray, CTA chest, and x-ray of hip and pelvis. All imaging is without evidence of acute findings. Patient is noted to have expiratory wheezing throughout, states she has been using her nebulizer at home as well as an inhaler prescribed at [facility]. States she has not been prescribed any prednisone recently. Will treat with short course of prednisone for acute asthma exacerbation due to COVID. Will treat musculoskeletal pain with cyclobenzaprine, topical lidocaine patches. Instructed patient to follow-up with her primary care provider. Return precautions discussed at bedside. Patient verbalized understanding of and agreement with plan. Differential Diagnosis Differential Diagnoses: The differential diagnosis associated with the presentation includes As per [facility] External Record Review External record reviewed: Inpatient record, Office record, Outpatient record and Outside ED record Tests considered The following testing was considered but not selected: Considered x-ray, not indicated Prescription Management I considered prescription management with: Pain Medication and Other Chronic Conditions Patient?s care impacted by: Other Discharge Plan Discharge Clinical Impression: Lumbar strain, Asthma exacerbation Patient Disposition: Home, Self-Care Instructions: Asthma (DC), Low Back Strain (ED) Additional Instructions: You were evaluated in the emergency department today for back pain. Your evaluation did not show signs of medical conditions requiring emergent intervention at this time. We recommended that you use ibuprofen 600mg every 6 hours as needed for pain. You have been prescribed a muscle relaxer which you may take every 8 hours as needed for spasms. You have been prescribed 5% topical lidocaine patches which you can wear for up to 12 hours in a 24 hour period. You are being prescribed a short course of prednisone to decrease inflammation in your lungs. Please schedule an appointment for follow-up with your primary care physician this week for further evaluation of your symptoms. Return to the emergency department if you experience worsening back pain, difficulty walking, fevers, numbness, tingling, incontinence, groin numbness or tingling, or any other concerning symptoms. Prescriptions: New cyclobenzaprine 5 mg tablet 5 mg PO TID PRN (Reason: muscle spasm) Qty: 10 0RF lidocaine 5 % adhesive patch,medicated 1 patch topical DAILY Qty: 15 0RF Rx Instructions: leave on most painful area for up to 12 hrs prednisone 20 mg tablet 40 mg PO DAILY Qty: 10 0RF
[2023-08-13 18:20] VITALS: BP 131/69; PULSE 77; RESP 16; TEMP 36.1; O2SAT 97
[2023-08-13 23:15] LABS: Glucose, Whole Blood 251 mg/dL (60-115)
== END 2023-08-13 18:23 | disposition home or self-care (01) ==
PROVIDERS: Emergency Provider Emergency Medicine
DX: S39.012A Strain of muscle, fascia and tendon of lower back, initial encounter (principal); X50.1XXA Overexertion from prolonged static or awkward postures, initial encounter; J45.901 Unspecified asthma with (acute) exacerbation; Y93.84 Activity, sleeping; Y92.013 Bedroom of single-family (private) house as the place of occurrence of the external cause; Y99.9 Unspecified external cause status
CPT/HCPCS: 82947; 99283; 99285

== ENCOUNTER 2023-08-28 17:51 | Emergency (ER) | payer MEDICAID, SELFPAY ==
--- NOTE | ~2023-08-28 | CT_ITS ---
EXAMINATION: CT ABDOMEN AND PELVIS WITH CONTRAST CLINICAL INFORMATION: Right flank discomfort. Back pain. COMPARISON: 02/17/2016 TECHNIQUE: Multidetector volumetric images were obtained from the superior aspect of the liver through the pubic symphysis following administration 85 mL of Omnipaque 350 intravenous contrast. Sagittal and coronal reformatted images were obtained on the technologist's workstation. Oral contrast: No This CT examination was performed using dose optimization techniques as appropriate, variously including the following: *Automated exposure control *Adjustment of mA and/or kV according to patient size (this includes techniques or standardized protocols for targeted exams where dose is matched to indication/reason for exam; i.e. extremities or head) *Use of iterative reconstruction technique DLP: 614 mGy-cm FINDINGS: LUNG BASES: The visualized lung bases are unremarkable. LIVER, GALLBLADDER, AND BILIARY TREE: Nodular hepatic contour with relative hypertrophy of the left lobe and slight parenchymal heterogeneity, consistent with cirrhosis. Mild hepatomegaly. No focal hepatic lesions are identified on this portable venous phase study. No biliary ductal dilatation. Gallbladder is surgically absent with multiple surgical clips in the gallbladder fossa. PANCREAS: Unremarkable. SPLEEN: Enlarged, measuring 19 cm craniocaudal. No focal abnormalities. ADRENAL GLANDS: Unremarkable. KIDNEYS AND URETERS: The kidneys are normal in size, shape, and attenuation. No hydronephrosis, hydroureter, or calculi seen. No perinephric stranding. Small subcentimeter foci of cortical hypoattenuation kidneys are too small to characterize, though statistically favored to correspond to simple cysts. No recommended imaging follow-up. BLADDER: Unremarkable. GASTROINTESTINAL TRACT: Small ascending paraesophageal varices and short gastric varices. Stomach, small bowel, and colon are normal in caliber. No bowel wall thickening or surrounding inflammatory changes. Appendix is normal. No intraperitoneal free fluid or free air. ABDOMINAL WALL: No significant hernia is appreciated. LYMPH NODES: Normal. VASCULAR: Portal vein is dilated, consistent with portal venous hypertension. As noted above, there small ascending paraesophageal varices in addition to short gastric varices. There is a recanalized paraumbilical vein. No appreciable splenorenal shunt. Minimal calcific atherosclerosis in the infrarenal abdominal aorta. No aneurysmal dilatation. PELVIC VISCERA: The uterus is normal in appearance. Multiple small calcifications on the left ovary. No adnexal lesions are identified. OSSEOUS STRUCTURES: There is Castellvi type IIA transitional anatomy on the left at the lumbosacral junction. Mild degenerative disc disease in the lumbar spine. No acute osseous findings. Hip joints appear relatively well-preserved. CT/CT abdomen pelvis w IV con IMPRESSION: 1. No acute intra-abdominal or intrapelvic abnormalities. 2. Hepatic cirrhosis with portal venous hypertension and splenomegaly. 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 Fleischner guidelines were followed.
[2023-08-28 18:03] LABS: Glucose, Whole Blood 392 mg/dL (60-115)
[2023-08-28 18:09] VITALS: BP 128/86; PULSE 101; PULSE 78; RESP 18; TEMP 36.6; O2SAT 97; O2SAT 98; BMI 35.3
[2023-08-28 18:51] LABS: MANUAL DIFF FLAG NO
[2023-08-28 18:54] LABS: Appearance Urine Clear; Color Urine Yellow; Glucose Urine UA >=1000 mg/dL (Negative); Leukocyte Esterase Urine Negative (Negative); Nitrite Urine Negative (Negative); Specific Gravity - Urine >= 1.030 (1.005-1.025); UMIC TRIGGER UACC YES; Urine Blood Negative (Negative); Urine Ketones Negative (Negative); Urine Protein Negative (Neg-Trace)
[2023-08-28 18:56] LABS: Bacteria Urine None Seen (None Seen); Hyaline Casts Urine 0-2 /LPF (0-2); RBC Urine 0-2 /HPF (0-2); Squamous Epithelial Cell Urine 0-2 /HPF (0-2); WBC Urine 0-5 /HPF (0-5)
[2023-08-28 19:01] LABS: Amphetamine Screen Urine Not Detected (Not Detect); Barbiturates, Urine Not Detected (Not Detect); Benzodiazepines Screen Urine Not Detected (Not Detect); Cannabinoid Screen Urine POSITIVE (Not Detect); Cocaine Screen Urine POSITIVE (Not Detect); Fentanyl, urine POSITIVE (Not Detect); Opiate Screen Urine Not Detected (Not Detect); Phencyclidine Screen Urine Not Detected (Not Detect)
[2023-08-28 19:06] LABS: Basophils Percent Auto 0.2 % (0-2); Eosinophils Percent Auto 0.7 % (0-4); Hematocrit 35.7 % (37.0-47.0); Hemoglobin 12.6 g/dl (12.0-16.0); Imm Gran Abs Auto 0.05 X10*3/uL (0.00-0.03); Imm Gran Pct Auto 0.9 % (0.0-0.4); Lymphocytes Absolute Auto 0.9 X10*3/uL (1.2-4.9); Lymphocytes Percent Auto 15.4 % (20-40); Mean Corpuscular HGB Conc 35.3 g/dl (31.0-35.0); Mean Corpuscular Hemoglobin 31.7 pg (27.0-33.0); Mean Corpuscular Volume 89.7 fL (80.0-98.0); Mean Platelet Volume 11.9 fL (9.4-12.3); Monocytes Absolute Auto 0.4 X10*3/uL (0.1-1.2); Monocytes Percent Auto 7.8 % (2-11); Neutrophils Absolute Auto 4.2 x10*3/uL (2.0-8.3); Platelet Count 76 X10*3/uL (160-400); Red Blood Count 3.98 X10*6/uL (4.20-5.50); Red Cell Distribution Width 14.4 % (11.0-16.0); White Blood Count 5.5 X10*3/uL (4.8-10.8)
[2023-08-28 19:11] LABS: IDNOW Serial# 16C4AD1C; IDNOW Serial# 55D5AD1C; Influenza A Negative (Negative); Influenza B2 Negative (Negative)
--- NOTE | 2023-08-28 19:11 | PC.NURSE ---
pt a&ox4 but seemingly lethargic at this time. pt nodding off at this time/unable to respond to questions appropriately d/t falling asleep. pt admits to using 3 bags of heroin intravenously this morning at 0800. pt denies pain at this time. presents to the ED d/t n/v/r sided flank pain and just feeling unwell x 3 days. no sob/wob noted. EMS states POC was in the 400s during transport. POC = 393mg/dL while laying in stretcher in ED. respirations even and unlabored. labs obtained/sent to lab at this time. plan of care ongoing at this time.
[2023-08-28 19:12] LABS: COVID-19 Test Negative (Negative)
[2023-08-28 19:17] LABS: Alanine Aminotransferase 45 U/L (0-31); Albumin Level 3.2 g/dL (3.5-5.0); Alkaline Phosphatase 128 U/L (39-117); Anion Gap 12 (12-20); Aspartate Amino Transferase 37 U/L (5-31); Bilirubin Total 0.9 mg/dL (0.0-1.0); Blood Urea Nitrogen 8 mg/dL (9-16); Calcium 8.3 mg/dL (8.4-10.2); Carbon Dioxide 23 mmol/L (22-29); Chloride 102 mmol/L (96-108); Creatinine Clr Calc Pharmacy 94.4; Estimated Glomerular Filt Rate > 60; Glucose Random 397 mg/dL (60-115); Potassium 4.1 mmol/L (3.3-5.1); Sodium 133 mmol/L (135-145); Total Protein 7.3 g/dL (6.5-8.0)
--- NOTE | 2023-08-28 19:59 | ED_ITS ---
HPI - General Adult General Chief complaint: General Medical Stated complaint: sick x3 days, r flank pain, N/V, POC 513 Time Seen by Provider: 08/28/23 18:15 Source: patient Mode of arrival: ambulatory History of Present Illness HPI narrative: 42-year-old female, history of IV drug abuse comes in with complaints right flank/CVA distribution of pain but states that it radiates down her back and although she has a history of sciatica patient states that this does not feel like that. She denies any bowel or bladder issues but has had some episodes of nausea and vomiting. Patient states that it started worsening at approximately 01:00 this morning. Patient reports she is status post cholecystectomy but states she still has her appendix. Related Data Previous Rx's Medication Instructions Recorded cyclobenzaprine 5 mg tablet 5 mg PO TID PRN muscle spasm #10 08/13/23 tabs lidocaine 5 % topical patch 1 patch topical DAILY #15 ea 08/13/23 prednisone 20 mg tablet 40 mg (2 x 20 mg) PO DAILY #10 tabs 08/13/23 Allergies Allergy/AdvReac Type Severity Reaction Status Date / Time No Known Allergies Allergy Verified 07/26/22 01:47 [No Known Allergies*] Review of Systems 2 Review of Systems: Pertinent positives and negatives as stated in HPI PMF[facility] Past Medical History Source: nursing notes reviewed Medical History Liver cirrhosis Methadone dependence Substance abuse Hepatitis C Depression Anxiety disorder Social History Social History Alcohol intake: current Smoked in Last 30 Days: Yes Use of substances other than those prescribed or required for medical reasons: Yes Substance Use Type: Crack/Cocaine and Heroin Substance Use Frequency: Chronic Longstanding Last Used Substance: Hours (ago) Any prior treatment program specific to substance use: No Advance Directives: No Advance Directives Information Provided: No Patient : No Physical Exam ED Vital Signs: Vital Signs - 24 hr 08/28/23 18:09 08/28/23 23:52 Temperature 97.9 F 97.8 F Pulse Rate 78 80 Respiratory Rate 18 Blood Pressure 128/86 96/65 Pulse Oximetry 98 96 Oxygen Delivery Method Room Air Room Air BMI result Body Mass Index 35.3 VITAL SIGNS: Reviewed. GENERAL: Well developed, well nourished, in no acute distress. HEAD: Normocephalic/atraumatic EYES: PERRLA, EOMI EARS: Ext canals without abnormality NOSE: Nares patent bilateral OROPHARYNX: no oral lesions noted, posterior pharynx clear NECK: Supple, no adenopathy LUNGS: Normal breath sounds. No adventitious sounds or accessory muscle use. SpO2<98> CARDIOVASCULAR: Regular rate and rhythm without noted murmurs BACK: No obvious erythema/induration, no point tenderness over midline vertebral palpation, scarring secondary to suspected prior back surgery ABDOMEN: Soft, non-tender, non-distended with bowel sounds. MUSCULOSKELETAL: No tenderness, deformities, or effusions noted on gross inspection. EXTREMITIES: No cyanosis, clubbing or edema. SKIN: Inspection of the skin reveals no rashes NEUROLOGIC: Drowsy but arousable and oriented x 3. Strength and sensation to light touch were grossly intact x 4. Medications Administered Discontinued Medications Generic Name Dose Route Start Last Admin Trade Name Freq PRN Reason Stop Dose Admin Sodium Chloride 1,000 mls @ 999 mls/hr 08/28/23 21:45 08/28/23 23:23 Ns IV 08/28/23 22:45 Infused .Q1H1M MICKIE Infusion Iohexol 100 ml 08/28/23 22:25 08/28/23 22:29 Iohexol 350 Mg/Ml 100 Ml Infus..Btl IV 08/28/23 22:26 85 ml ONCE ONE Administration Medical Decision Making Medical Decision Making [facility] Narrative: 2114: 42-year-old female with history and clinical presentation, DDX: Viral illness, Renal colic, pyelonephritis, UTI, lower clinical suspicion for appendicitis, possible intramuscular abscess I reviewed all investigations and hematologic indices are negative for leukocytosis in there is a left shift of unclear significance, otherwise no anemia and there is a chronic thrombocytopenia. On initial presentation patient is noted be hyperglycemic with a corresponding pseudohyponatremia and low clinical suspicion for any DKA or HHS. Chemistry indices do not demonstrate an FREDDIE and there is no electrolyte derangement and the noted LFT derangement is suspected to be associated with patient's drug use as there is no evidence of an elevated temperature and patient is status post cholecystectomy, beta hCG is undetectable. Due to patient's complicated history with IVDA decision to CT scan abdomen pelvis with IV contrast for further evaluation of any acute findings within the right flank or back and no evidence to suggest any intra- abdominal pathology. Viral testing negative for influenza/COVID-19. Urinalysis is negative for UTI or hematuria. Repeat glucose 266, patient is receiving IV fluids. Patient placed in physician observation because the patient needed more time for clinical sobriety. At the time observation was started the patient's vital signs were stable, patient is alert and oriented but slightly agitated, neuro: Nonfocal, CV RRR, lungs clear Differential Diagnosis Differential Diagnoses: The differential diagnosis associated with the presentation includes Please see the discussion above Admission/Observation Consideration of admission/observation: Escalation of care including admission/observation considered Please see the discussion above Lab Data MDM Lab Attestation statement: I reviewed the patient's lab results. Please see the discussion above 08/28/23 18:41 08/28/23 18:41 Labs: Lab Results 08/28/23 08/28/23 08/28/23 Range/Units 17:59 18:41 23:23 WBC 5.5 (4.8-10.8) X10*3/uL RBC 3.98 L (4.20-5.50) X10*6/uL Hgb 12.6 (12.0-16.0) g/dl Hct 35.7 L (37.0-47.0) % MCV 89.7 (80.0-98.0) fL MCH 31.7 (27.0-33.0) pg MCHC 35.3 H (31.0-35.0) g/dl RDW 14.4 (11.0-16.0) % Plt Count 76 L (160-400) X10*3/uL MPV 11.9 (9.4-12.3) fL Immature Gran % (Auto) 0.9 H (0.0-0.4) % Neut % (Auto) 75.0 H (45-73) % Lymph % (Auto) 15.4 L (20-40) % Mclennan % (Auto) 7.8 (2-11) % Eos % (Auto) 0.7 (0-4) % Baso % (Auto) 0.2 (0-2) % Lymph # (Auto) 0.9 L (1.2-4.9) X10*3/uL Mclennan # (Auto) 0.4 (0.1-1.2) X10*3/uL Eos # (Auto) 0.0 (0.0-0.4) X10*3/uL Baso # (Auto) 0.0 (0.0-0.2) X10*3/uL Abs Immat Gran (auto) 0.05 H (0.00-0.03) X10*3/uL Absolute Neuts (auto) 4.2 (2.0-8.3) x10*3/uL Absolute Nucleated RBC 0.000 (0.0-0.012) X10*3/uL Nucleated RBC % (auto) 0.0 (0.0-0.2) /100WBC Sodium 133 L (135-145) mmol/L Potassium 4.1 (3.3-5.1) mmol/L Chloride 102 (96-108) mmol/L Carbon Dioxide 23 (22-29) mmol/L Anion Gap 12 (12-20) BUN 8 L (9-16) mg/dL Creatinine 0.85 (0.5-1.4) mg/dL Estim Creat Clear Calc 94.4 Estimated GFR > 60 POC Glucose 392 H* 266 H (60-115) mg/dL Random Glucose 397 H* (60-115) mg/dL Calcium 8.3 L (8.4-10.2) mg/dL Total Bilirubin 0.9 (0.0-1.0) mg/dL AST 37 H (5-31) U/L ALT 45 H (0-31) U/L Alkaline Phosphatase 128 H (39-117) U/L Total Protein 7.3 (6.5-8.0) g/dL Albumin 3.2 L (3.5-5.0) g/dL Beta HCG, Quant < 2 mIU/mL Urine Color Yellow Urine Appearance Clear Urine pH 6.0 (5.0-9.0) Ur Specific [place] >= 1.030 H (1.005-1.025) Urine Protein Negative (Neg-Trace) mg/dL Urine Glucose (UA) >=1000 H (Negative) mg/dL Urine Ketones Negative (Negative) mg/dL Urine Blood Negative (Negative) Urine Nitrite Negative (Negative) Ur Leukocyte Esterase Negative (Negative) Urine RBC 0-2 (0-2) /HPF Urine WBC 0-5 (0-5) /HPF Ur Squamous Epith Cells 0-2 (0-2) /HPF Urine Bacteria None Seen (None Seen) Hyaline Casts 0-2 (0-2) /LPF Urine Opiates Screen Not Detected (Not Detect) Urine Fentanyl Screen POSITIVE H (Not Detect) Ur Barbiturates Screen Not Detected (Not Detect) Ur Phencyclidine Scrn Not Detected (Not Detect) Ur Amphetamines Screen Not Detected (Not Detect) U Benzodiazepines Scrn Not Detected (Not Detect) Urine Cocaine Screen POSITIVE H (Not Detect) U Marijuana (THC) Screen POSITIVE H (Not Detect) COVID-19 (SADAF) Negative (Negative) COVID-19 Clin Com See Note Influenza Type A (MELY) Negative (Negative) Influenza Type B (MELY) Negative (Negative) Influenza A & B Note See Note Radiology Impression Discussion of test interpretation with radiology: I have reviewed the radiologist's reading. Radiologist Impression: Please see the discussion above External Record Review External record reviewed: Outpatient record, Prior outpatient labs and Prior outpatient radiology Chronic Conditions Patient?s care impacted by: Diabetes Critical Care Time Critical Care Time Critical Care Time: Yes Total Critical Care Time: 45 Attestation: I personally attest to this time spent taking care of the patient. Discharge Plan Discharge Clinical Impression: Feeling unwell, Viral syndrome Patient Disposition: Still a Patient Instructions: Viral Syndrome (ED) Prescriptions: No Action cyclobenzaprine 5 mg tablet 5 mg PO TID PRN (Reason: muscle spasm) Qty: 10 0RF lidocaine 5 % adhesive patch,medicated 1 patch topical DAILY Qty: 15 0RF Rx Instructions: leave on most painful area for up to 12 hrs prednisone 20 mg tablet 40 mg PO DAILY Qty: 10 0RF
[2023-08-28] MEDS: 0.9 % Sodium Chloride 1,000 ML 999 ML IV (21:55)
[2023-08-28 22:14] LABS: HCG Quantitative < 2 mIU/mL
[2023-08-28] MEDS: iohexoL 350 MG/ML 100 ML INFUS..BTL IV (22:29)
[2023-08-28 23:27] LABS: Glucose, Whole Blood 266 mg/dL (60-115)
[2023-08-28 23:52] VITALS: BP 96/65; PULSE 80; TEMP 36.6; O2SAT 96
[2023-08-29 03:19] LABS: Glucose, Whole Blood 252 mg/dL (60-115)
[2023-08-29 07:26] VITALS: BP 104/53; PULSE 71; RESP 15; TEMP 35.8; O2SAT 95
[2023-08-29 07:48] LABS: Glucose, Whole Blood 305 mg/dL (60-115)
[2023-08-29 09:02] VITALS: BP 98/41; PULSE 82; RESP 16; TEMP 36.2; O2SAT 97
--- NOTE | 2023-08-29 09:15 | HE.PHANOTE ---
METHADONE VERIFICATION: Last dose 95mg given 08/28/23 at [facility].
--- NOTE | 2023-08-29 09:20 | MHC.RECOVRN ---
Met with pt in [facility] after provider requested check in. Pt had presented to the ED for feeling unwell x3 days with right flank pain. Pts UDS positive for fentanyl, cocaine, marijuana. Pt laying in bed, eyes closed, wakes to voice. Pt reports coming to the hospital for pain as well as abscess on her side, does not have concerns regarding substance use. Pt reports she is currently on methadone through [facility], decreased from 100 mg to 95 mg yesterday, x a couple years. Pt reports desire to taper off methadone. Pt reports she currently uses heroin/fentanyl, 2 bags, as well as cocaine, $20, IV and IN, once every 3 weeks. Pt denies alcohol use. Pt reports she has had a reading recovery teacher in the past, is not interested at this time due to desire to address acute medical issues first. Discussed other recovery support options, pt declines referrals. Pt denies other questions or concerns for t/w. Discussed with ED provider.
[2023-08-29] MEDS: Doxycycline Monohydrate 100 MG CAPSULE PO (10:20)
[2023-08-29] MEDS: methADONE HCl 20 MG/2 ML ORAL.CONC 95 MG PO (10:20)
[2023-08-29] MEDS: cephALEXin 500 MG CAPSULE PO (10:20)
== END 2023-08-29 10:37 | disposition home or self-care (01) ==
PROVIDERS: Emergency Provider Student in an Organized Health Care Education/Training Program
DX: B34.9 Viral infection, unspecified (principal); R10.9 Unspecified abdominal pain; R11.2 Nausea with vomiting, unspecified; B19.20 Unspecified viral hepatitis C without hepatic coma; Z11.52 Encounter for screening for COVID-19; F11.20 Opioid dependence, uncomplicated
CPT/HCPCS: 74177; 80053; 80307; 81001; 82947; 84702; 85025; 87502; 87635; 96360; 99284; Q9967

== ENCOUNTER 2024-07-22 22:19 | Emergency (ER) | payer MEDICAID, SELFPAY ==
--- NOTE | 2024-07-22 | ECG_ITS ---
Test Reason : OD Blood Pressure : / mmHG Vent. Rate : 119 BPM Atrial Rate : 119 BPM P-R Int : 138 ms QRS Dur : 086 ms QT Int : 340 ms P-R-T Axes : 065 014 053 degrees QTc Int : 478 ms Sinus tachycardia Otherwise normal ECG When compared with ECG of 26-JUL-2022 01:38, No significant change was found Referred By: Generic ED Physician Electronically Signed By:SONALI BARNHART MD
[2024-07-22 22:33] VITALS: BP 123/71; PULSE 98; RESP 20; TEMP 37.3; O2SAT 98; BMI 32.6
--- NOTE | 2024-07-22 22:43 | PC.NURSE ---
Pt regional climate change analyst to hospital attire, pt placed on bedside monitor, pt assisted to bedside commode, security into assist with belonging.
--- NOTE | 2024-07-22 22:44 | ED_ITS ---
HPI - General Adult General Chief complaint: General Medical Stated complaint: od Time Seen by Provider: 07/22/24 22:44 Source: patient Mode of arrival: ambulatory Limitations: no limitations History of Present Illness ED Provider: HPI narrative: Patient's history of opiate abuse on methadone took 1 bag of heroin at cousin's house became obtunded was given 4 mg of Narcan by her cousin now patient complaining of diarrhea diffuse abdominal cramps and vomiting asking for pain medicine Related Data Home Medications ?Medication ?Instructions ?Recorded ?Confirmed methadone 10 mg/mL oral 95 mg PO DAILY 08/29/23 08/29/23 concentrate (Methadone Intensol) Previous Rx's ?Medication ?Instructions ?Recorded cyclobenzaprine 5 mg tablet 5 mg PO TID PRN muscle spasm #10 08/13/23 tabs lidocaine 5 % topical patch 1 patch topical DAILY #15 ea 08/13/23 prednisone 20 mg tablet 40 mg (2 x 20 mg) PO DAILY #10 tabs 08/13/23 cephalexin 500 mg capsule 500 mg PO QID 7 days #28 caps 08/29/23 doxycycline hyclate 100 mg capsule 100 mg PO BID 7 days #14 caps 08/29/23 Allergies Allergy/AdvReac Type Severity Reaction Status Date / Time No Known Allergies Allergy Verified 07/22/24 22:38 [No Known Allergies*] Review of Systems Review of Systems: Yes all other systems are reviewed and are negative PMFSH Past Medical History Medical History Liver cirrhosis Methadone dependence Substance abuse Hepatitis C Depression Anxiety disorder Social History Social History Alcohol intake: current Smoked in Last 30 Days: Yes Use of substances other than those prescribed or required for medical reasons: Yes Substance Use Type: Heroin Advance Directives: No Do you have a plan to hurt others: No Plan Physical Exam ED Vital Signs: Vital Signs - 24 hr 07/22/24 22:33 07/23/24 00:00 07/23/24 01:11 Temperature 99.1 F 98.3 F 98.0 F Pulse Rate 98 120 H 112 H Respiratory Rate 20 20 16 Blood Pressure 123/71 132/74 132/74 Pulse Oximetry 98 96 98 Oxygen Delivery Method Room Air Room Air Room Air BMI result Body Mass Index 32.6 Appearance: Alert. Oriented X3. No acute distress. Eyes: PERRLA, No Nystagmus ENT: Pharynx normal. Oral Mucosa moist Neck: Normal inspection. Neck supple. CVS: Normal heart rate and rhythm. Pulses normal. Respiratory: No respiratory distress. Equal air entry bilateral, no wheezing/rales/rhonchi Abdomen: Soft and nontender. Bowel sounds are present, no mass palpable, no CVA tenderness Skin: Skin warm and dry. Normal skin color. Normal skin turgor. Extremities: No lower extremity edema. No calf tenderness Neuro: Oriented X 3. No motor deficit. No sensory deficit.No cerebellar signs , cranial nerves II-XII intact Medications Administered Discontinued Medications Generic Name Dose Route Start Last Admin Trade Name Aldairq PRN Reason Stop Dose Admin Lorazepam 2 mg 07/22/24 23:07 07/22/24 23:17 Lorazepam 1 Mg Tablet PO 07/22/24 23:08 2 mg ONCE ONE Administration Ondansetron HCl 4 mg 07/22/24 23:07 07/22/24 23:17 Ondansetron Odt 4 Mg Tab.Rapdis TRANSLINGU 07/22/24 23:08 4 mg ONCE ONE Administration Medical Decision Making Medical Decision Making [facility] Narrative: Patient's opiate abuse with withdrawal after Narcan already has methadone at home feeling much better after Ativan discharge patient home advised to stop using narcotic Lab Data [facility] Lab Attestation statement: I reviewed the patient's lab results. Labs: Lab Results 07/22/24 Range/Units 23:19 Urine Color Yellow Urine Appearance Clear Urine pH 6.5 (5.0-9.0) Ur Specific Powers >= 1.030 H (1.005-1.025) Urine Protein Negative (Neg-Trace) mg/dL Urine Glucose (UA) >=1000 H (Negative) mg/dL Urine Ketones Trace (Negative) mg/dL Urine Blood Negative (Negative) Urine Nitrite Negative (Negative) Ur Leukocyte Esterase Negative (Negative) Urine RBC 0-2 (0-2) /HPF Urine WBC 0-5 (0-5) /HPF Ur Squamous Epith Cells 3-5 (0-2) /HPF Urine Bacteria None Seen (None Seen) Hyaline Casts 0-2 (0-2) /LPF Urine Opiates Screen POSITIVE H (Not Detect) Ur Buprenorphine Scrn Not Detected (Not Detect) ng/mL Ur Oxycodone Screen Not Detected (Not Detect) ng/mL Urine Methadone Screen Positive H (Not Detect) ng/mL Urine Fentanyl Screen POSITIVE H (Not Detect) Ur Barbiturates Screen Not Detected (Not Detect) Ur Phencyclidine Scrn Not Detected (Not Detect) Ur Amphetamines Screen Not Detected (Not Detect) U Benzodiazepines Scrn Not Detected (Not Detect) Urine Cocaine Screen POSITIVE H (Not Detect) U Marijuana (THC) Screen Not Detected (Not Detect) Influenza Type A (PCR) NEGATIVE (Negative) Influenza Type B (PCR) NEGATIVE (Negative) RSV RNA Qual (PCR) NEGATIVE (Negative) SARS-CoV-2 RNA (RT-PCR) NEGATIVE (Negative) Discharge Plan Discharge Clinical Impression: Polysubstance abuse Patient Disposition: Home, Self-Care Instructions: Polysubstance Abuse (ED) Additional Instructions: Stop using heroin, cocaine, fentanyl Follow up with detox Prescriptions: No Action cyclobenzaprine 5 mg tablet 5 mg PO TID PRN (Reason: muscle spasm) Qty: 10 0RF lidocaine 5 % adhesive patch,medicated 1 patch topical DAILY Qty: 15 0RF Rx Instructions: leave on most painful area for up to 12 hrs prednisone 20 mg tablet 40 mg PO DAILY Qty: 10 0RF methadone [Methadone Intensol] 10 mg/mL Concentrate 95 mg PO DAILY doxycycline hyclate 100 mg capsule 100 mg PO BID 7 Days Qty: 14 0RF cephalexin 500 mg capsule 500 mg PO QID 7 Days Qty: 28 0RF Print Language: Mauritian
[2024-07-22] MEDS: LORazepam 1 MG TABLET 2 MG PO (23:17)
[2024-07-22] MEDS: Ondansetron ODT 4 MG TAB.RAPDIS TRANSLINGU (23:17)
--- NOTE | 2024-07-22 23:23 | PC.NURSE ---
Pt medicated per sep, pt had a quarter size, red spot in her inner left thigh, Notified Dr. Mo.
[2024-07-22 23:26] LABS: Appearance Urine Clear; Color Urine Yellow; Glucose Urine UA >=1000 mg/dL (Negative); Leukocyte Esterase Urine Negative (Negative); Nitrite Urine Negative (Negative); PH 6.5 (5.0-9.0); Specific Gravity - Urine >= 1.030 (1.005-1.025); UMIC TRIGGER UACC YES; Urine Blood Negative (Negative); Urine Ketones Trace mg/dL (Negative); Urine Protein Negative (Neg-Trace)
[2024-07-22 23:32] LABS: Bacteria Urine None Seen (None Seen); Hyaline Casts Urine 0-2 /LPF (0-2); RBC Urine 0-2 /HPF (0-2); WBC Urine 0-5 /HPF (0-5)
[2024-07-22 23:36] LABS: Amphetamine Screen Urine Not Detected (Not Detect); Barbiturates, Urine Not Detected (Not Detect); Benzodiazepines Screen Urine Not Detected (Not Detect); Buprenorphine Scr Not Detected (Not Detect); Cannabinoid Screen Urine Not Detected (Not Detect); Cocaine Screen Urine POSITIVE (Not Detect); Fentanyl, urine POSITIVE (Not Detect); Methadone Screen, Urine Positive (Not Detect); Opiate Screen Urine POSITIVE (Not Detect); Oxycodone Screen Urine Not Detected (Not Detect); Phencyclidine Screen Urine Not Detected (Not Detect)
[2024-07-23] VITALS: BP 132/74; PULSE 120; RESP 20; TEMP 36.8; O2SAT 96
[2024-07-23 00:02] LABS: Influenza A PCR NEGATIVE (Negative); Influenza B PCR NEGATIVE (Negative); Resp Syncy Virus RNA Qual PCR NEGATIVE (Negative); SARS COV2 PCR INHOUSE NEGATIVE (Negative)
[2024-07-23 01:11] VITALS: BP 132/74; PULSE 112; RESP 16; TEMP 36.7; O2SAT 98
--- NOTE | 2024-07-23 01:16 | PC.NURSE ---
Pt a&o, Po challenge tolerate well, reviewed discharge instructions with pt. pt verbalized understanding , no sign of distress.
[2024-07-23 01:17] VITALS: BP 132/74; PULSE 112; RESP 16; TEMP 36.7; O2SAT 98
== END 2024-07-23 01:19 | disposition home or self-care (01) ==
PROVIDERS: Emergency Provider Internal Medicine
DX: F11.10 Opioid abuse, uncomplicated (principal); F14.10 Cocaine abuse, uncomplicated; R19.7 Diarrhea, unspecified; R10.2 Pelvic and perineal pain; R00.0 Tachycardia, unspecified; Z03.818 Encounter for observation for suspected exposure to other biological agents ruled out; Z79.899 Other long term (current) drug therapy; Z51.81 Encounter for therapeutic drug level monitoring
CPT/HCPCS: 0241U; 80307; 81001; 93005; 99284

== ENCOUNTER → 2024-07-22 22:26 | Outpatient (BNV) | payer MEDICAID, SELFPAY | PROVIDERS: Emergency Provider Internal Medicine; Visit Provider Internal Medicine Cardiovascular Disease | DX: R00.0 Tachycardia, unspecified (principal) | CPT/HCPCS: 93010 ==